=== PATIENT | female | born 1960 | race Two or more races ===

== ENCOUNTER → 2017-04-16 | Outpatient (CLI) | payer OTHER ==
--- NOTE | 2017-04-16 15:11 | RADIOLOGY REPORT (SQ) ---
EXAM DESCRIPTION: KNEE RIGHT 4 VIEWS COMPLETED DATE/TIME: 04/16/2017 2:29 pm REASON FOR STUDY: PAIN IN RIGHT KNEE M25.561 PAIN IN RIGHT KNEE COMPARISON: None. NUMBER OF VIEWS: Four views. TECHNIQUE: AP, lateral, and both oblique radiographic images acquired of the right knee. LIMITATIONS: None. FINDINGS: MINERALIZATION: Normal. BONES: No acute fracture or dislocation. No worrisome bone lesions. JOINT: Moderate size suprapatellar knee joint effusion. There are small intra-articular loose bodies along the intercondylar notch region. Mild joint space narrowing in the patellofemoral, medial, and lateral compartments with bony spurring. SOFT TISSUES: No soft tissue swelling. No radio-opaque foreign body. OTHER: No other significant finding. IMPRESSION: Joint effusion Small intra-articular loose bodies Tricompartment osteoarthritis TECHNICAL DOCUMENTATION: JOB ID: [id number] [employer]- All Rights Reserved
== END ==
LOC: OD 13:27
PROVIDERS: ATTEND Family Medicine
DX: M25.561 Pain in right knee (principal)

== ENCOUNTER 2019-02-05 09:32 | Emergency (ER) | payer OTHER ==
--- NOTE | 2019-02-05 11:40 | ER Document Report ---
HPI - HPI Time Seen by Provider: 02/05/19 11:14 Pain Level: 5 Notes: Patient is a 58-year-old female with history of chronic pain who presents complaining of right knee pain, right ankle pain, and right low back pain status post fall while at work yesterday. Patient states that she slipped on water and fell on her right side. She did not hit her head or lose conscious. Patient states that she had some soreness thereafter, but continued with her activities and went to a concert with her kids. Patient states that she has had continued pain to these areas and has been limping since then. She is able to eat and drink without difficulty. She is urinating normally and having normal bowel movements. The pain in her back feels like "soreness" and she has sharp pain in her right knee and right ankle. Denies any headache, fever, head injury, neck pain, changes in vision/speech/mentation/hearing, URI, sore throat, chest pain, palpitations, syncope, cough, shortness of breath, wheeze, dyspnea, abdominal pain, nausea/vomiting/diarrhea, urinary retention, dysuria, hematuria, loss of control of bowel or bladder, numbness/tingling, saddle anesthesia, muscle paralysis/weakness, or rash. - ROS Systems Reviewed and Negative: Yes All other systems reviewed and negative - MUSCULOSKELETAL Musculoskeletal: REPORTS: Extremity pain Past Medical History - Social History Smoking Status: Current Every Day Smoker Chew tobacco use (# tins/day): No Frequency of alcohol use: None Drug Abuse: None Family History: Reviewed & Not Pertinent Patient has suicidal ideation: No Patient has homicidal ideation: No Musculoskeletal Medical History: Reports Hx Arthritis Past Surgical History: Reports: Hx Abdominal Surgery - umbilical hernia, Hx Appendectomy, Hx Section - x 3, Hx Cholecystectomy, Hx Orthopedic Surgery - left tkr - Immunizations Hx Diphtheria, Pertussis, Tetanus Vaccination: Yes Vertical Provider Document - CONSTITUTIONAL Agree With Documented VS: Yes Notes: PHYSICAL EXAMINATION: GENERAL: Well-appearing, well-nourished and in no acute distress. A&Ox4. Answers questions appropriately. HEAD: Atraumatic, normocephalic. Non-tender. No alford sign EYES: Pupils equal round and reactive to light, extraocular movements intact, sclera anicteric, conjunctiva are normal. No raccoon eyes/entrapment ENT: EAC clear b/l. TM's intact b/l without erythema, fluid, or perforation. Nares patent and without discharge. oropharynx clear without exudates. No tonsilar hypertrophy or erythema. Moist mucous membranes. No sinus tenderness. No hemotympanum/CSF discharge. NECK: Normal range of motion, supple without lymphadenopathy. No rigidity. No midline tenderness. Chest: No flail chest. equal rise/fall. Non-tender LUNGS: Breath sounds clear to auscultation bilaterally and equal. No wheezes rales or rhonchi. HEART: Regular rate and rhythm without murmurs, rubs, gallops. ABDOMEN: Soft, nontender, nondistended abdomen. No guarding, no rebound. Normal bowel sounds present. No CVA tenderness bilaterally. No seatbelt sign. Musculoskeletal: Hips: FROM. Non-tender to palp. Rt knee: FROM. + tenderness lateral knee to palp. No ecchymosis, erythema, deformity, or swelling noted. N/V intact distal. Rt ankle: FROM. + tenderness lateral malleolus. No tenderness to the foot. Achilles intact. Lis-franc negative. No ecchymosis, erythema, deformity, or swelling noted. N/V intact. Ext's otherwise b/l: FROM to passive/active. Strength 5+/5. No deficits noted. No bony tenderness of extremities. Back: FROM to passive/active. Strength 5+/5. No vertebral point tenderness, stepoffs, or deformities. No other bony tenderness or ecchymosis. SLR negative b/l. No foot drop. No SI jt tenderness. + tenderness, mild, to the rt L-par aspinal muscles. Extremities: No cyanosis, clubbing, or edema b/l. Peripheral pulses 2+. Capillary refill less than 2 seconds. NEUROLOGICAL: NIH 0. GCS 15. Cranial nerves grossly intact. Normal speech, limping gait. Normal sensory, motor exams. PSYCH: Normal mood, normal affect. SKIN: Warm, Dry, normal turgor, no rashes or lesions noted. - INFECTION CONTROL TRAVEL OUTSIDE OF THE [place] IN LAST 30 DAYS: No Course - Re-evaluation Re-evalutation: 02/05/19 12:10 Patient is an afebrile, well-hydrated, 58-year-old female who presents to the ED with Rt knee/low back/ankle pain which I suspect to be a sprain versus strain. Vitals are acceptable without any significant tachycardia, tachypnea, or hypoxia. PE is otherwise unremarkable for any neurovascular compromise, obvious tendon/ligament rupture, obvious fracture/dislocation, septic joint. X-rays acceptable. Ankle stirrup, knee immobilizer, and crutches were provided today. Pt is on narcotics regularly. Patient is nontoxic-appearing. Patient is able to ambulate and weight-bear although she is limping. No other labs or imaging warranted at this time based on H&P. Conservative measures otherwise for symptoms. Recheck with your PCM in 3-5 days. Consider consult orthopedics. Return to the ED with any worsening/concerning symptoms otherwise as reviewed in discharge. Patient is in agreement. - Vital Signs Vital signs: Temp Pulse Resp BP Pulse Ox 98.9 F 73 16 117/57 L 99 02/05/19 09:45 02/05/19 09:39 02/05/19 09:45 02/05/19 09:39 02/05/19 09:45 Discharge - Discharge Clinical Impression: Right knee pain Qualifiers: Chronicity: acute Qualified Code(s): M25.561 - Pain in right knee Right ankle pain Qualifiers: Chronicity: acute Qualified Code(s): M25.571 - Pain in right ankle and joints of right foot Right low back pain Qualifiers: Chronicity: acute Sciatica presence: without sciatica Qualified Code(s): M54.5 - Low back pain Condition: Stable Disposition: HOME, SELF-CARE Additional Instructions: Rest, Ice, Compression, Elevation Tylenol/ibuprofen as needed Light stretches daily Strength exercises as able Moist heat and massage may help F/u with your PCP in 3-5 days for a recheck Consider consult(s) with Orthopedics/physical therapy for ongoing/worsening sym ptoms Return to the ED with any worsening symptoms and/or development of fever, headache, chest pain, palpitations, syncope, shortness of breath, trouble breathing, abdominal pain, n/v/d, muscle weakness/paralysis, numbness/tingling, swelling, redness, or other worsening symptoms that are concerning to you. Forms: Smoking Cessation Education, Return to Work Referrals: ENID SEGURA MD [NO LOCAL MD] - Follow up as needed [facility] [Provider Group] - Follow up as needed
--- NOTE | 2019-02-05 12:03 | RADIOLOGY REPORT (SQ) ---
EXAM DESCRIPTION: ANKLE RIGHT COMPLETE; HIP RIGHT AP/LATERAL; KNEE RIGHT 4 VIEWS COMPLETED DATE/TIME: 02/05/2019 11:52 am REASON FOR STUDY: pain s/p fall COMPARISON: None. FINDINGS: Four views right knee: Sizable joint effusion. No evidence of overt fracture. Joint spa ce narrowing medially. Mild degenerative spurring otherwise throughout the knee. Two views right hip: Includes AP pelvis and frog lateral. Normal. Right hip intact. Three views right ankle: Minimal calcaneal bone spur. Otherwise normal. No fracture. TECHNICAL DOCUMENTATION: JOB ID: [id number] Reading location - IP/workstation name: [email or web address]
--- NOTE | 2019-02-05 12:03 | RADIOLOGY REPORT (SQ) ---
EXAM DESCRIPTION: ANKLE RIGHT COMPLETE; HIP RIGHT AP/LATERAL; KNEE RIGHT 4 VIEWS COMPLETED DATE/TIME: 02/05/2019 11:52 am REASON FOR STUDY: pain s/p fall COMPARISON: None. FINDINGS: Four views right knee: Sizable joint effusion. No evidence of overt fracture. Joint spa ce narrowing medially. Mild degenerative spurring otherwise throughout the knee. Two views right hip: Includes AP pelvis and frog lateral. Normal. Right hip intact. Three views right ankle: Minimal calcaneal bone spur. Otherwise normal. No fracture. TECHNICAL DOCUMENTATION: JOB ID: [id number] Reading location - IP/workstation name: [email or web address]
--- NOTE | 2019-02-05 12:03 | RADIOLOGY REPORT (SQ) ---
EXAM DESCRIPTION: ANKLE RIGHT COMPLETE; HIP RIGHT AP/LATERAL; KNEE RIGHT 4 VIEWS COMPLETED DATE/TIME: 02/05/2019 11:52 am REASON FOR STUDY: pain s/p fall COMPARISON: None. FINDINGS: Four views right knee: Sizable joint effusion. No evidence of overt fracture. Joint spa ce narrowing medially. Mild degenerative spurring otherwise throughout the knee. Two views right hip: Includes AP pelvis and frog lateral. Normal. Right hip intact. Three views right ankle: Minimal calcaneal bone spur. Otherwise normal. No fracture. TECHNICAL DOCUMENTATION: JOB ID: [id number] Reading location - IP/workstation name: [email or web address]
[2019-02-05 12:37] VITALS: BP 126/75
== END 2019-02-05 12:45 | disposition home or self-care (01) ==
LOC: ER 09:32
DX: M25.561 Pain in right knee (principal); M25.571 Pain in right ankle and joints of right foot; M54.5 Low back pain; W01.0XXA Fall on same level from slipping, tripping and stumbling without subsequent striking against object, initial encounter; Y99.0 Civilian activity done for income or pay; F17.200 Nicotine dependence, unspecified, uncomplicated
CPT/HCPCS: 99283; 73610; 73502; 73564; L1830; L1902